=== PATIENT | male | born 1965 | race American Indian/Alaskan Native ===

== ENCOUNTER 2017-07-28 13:03 | Emergency (ER) | payer OTHER ==
[2017-07-28 13:41] VITALS: BP 117/80
== END 2017-07-28 22:42 | disposition left against medical advice (07) ==
LOC: ED 13:03
DX: Z53.21 Procedure and treatment not carried out due to patient leaving prior to being seen by health care provider (principal)

== ENCOUNTER 2019-08-11 14:11 | Emergency (ER) | payer OTHER ==
[2019-08-11 14:15] VITALS: BP 120/84
[2019-08-11] MEDS ORDERED: traMADol 50 MG TAB PO ONE (19:33)
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
== END 2019-08-11 20:00 | disposition home or self-care (01) ==
LOC: ED 14:11
DX: S16.1XXA Strain of muscle, fascia and tendon at neck level, initial encounter (principal); Z79.899 Other long term (current) drug therapy; V43.52XA Car driver injured in collision with other type car in traffic accident, initial encounter; Y93.89 Activity, other specified; Y92.488 Other paved roadways as the place of occurrence of the external cause; Y99.8 Other external cause status
CPT/HCPCS: 99282

== ENCOUNTER 2019-08-13 23:05 | Emergency (ER) | payer OTHER | END 2019-08-13 23:09 | disposition left against medical advice (07) | LOC: ED 23:05 | DX: M54.2 Cervicalgia (principal); Z53.21 Procedure and treatment not carried out due to patient leaving prior to being seen by health care provider ==